=== PATIENT | male | born 1970 | race Caucasian/White ===

== ENCOUNTER 2019-02-10 08:01 | Emergency (ER) | payer MEDICAID, OTHER ==
[~2019-02-10] VITALS: Ht 167.6 cm; Wt 80.3 kg
[~2019-02-10 08:01] MED LIST: CARB15DR50 BOTH EARS; CHLO25CA9 PO; FAMO-96 PO; IBUP800T48 PO; MAG355OR15 PO; METF500T PO; METF500T24 PO; NAPR-985 PO; PENI500T PO
[2019-02-10 08:02] VITALS: Ht 167.6 cm; Wt 80.3 kg
[2019-02-10] MEDS ORDERED: ONDANSETRON 4 MG INJ IV STA (08:25)
[2019-02-10] MEDS ORDERED: SOD CHLORIDE 0.9% 1,000 ML IV STA (08:25)
[2019-02-10] MEDS ORDERED: MAGNESIUM SULFATE 2 GM, MULTIVITAMINS 10 ML, THIAMINE 100 MG, FOLIC ACID 1 MG in SOD CH... IV STA (08:25)
[2019-02-10] MEDS ORDERED: MECLIZINE 12.5 MG TAB PO ONE (08:30)
[2019-02-10] MEDS ORDERED: INSU100I33 SC (10:36)
[2019-02-10] MEDS ORDERED: MECL12.574 PO (10:50)
--- NOTE | 2019-02-10 10:50 | ERD ---
ER Documentation Chief Complaint Chief Complaint DIZZINESS SINCE THURSDAY; HISTORY OF DIABETES MELLITUS AND HYPERTENSION HPI This is a 48-year-old male that presents to the emergency department complaining of dizziness for the past 3 days. The patient indicates he has been drinking a significant amount of alcohol during that period. His last consumption of alcohol was roughly 12 hours ago. He has a history of diabetes mellitus and states he has not been compliant with his insulin since he had been drinking. He complains of a mild bandlike headache but states this is not the worst headache of his life. He denies any neck pain. He said no fevers or shaking or chills. He denies any head trauma. He has no chest pain. He has no shortness of breath. He has not experienced any hemoptysis hematemesis or melanotic stools. He states he is never had any history of withdrawal symptoms in the past from alcohol. ROS All systems reviewed and are negative except as per history of present illness. Medications Home Meds Reported Medications Insulin Glargine,Hum.rec.anlog (Basaglar Kwikpen U-100) 100 Unit/1 Ml Insuln.pen, 22 UNIT SC QAM, EA 02/10/19 Discontinued Scripts Metformin Hcl* (Metformin Hcl*) 500 Mg Tablet, 500 MG PO WITH BREAKFAST, #30 TAB Prov:OBIE KENNEY PA-C 02/26/16 Carbamide Peroxide* (Debrox*) 6.5% - 15 Ml Drops, 10 DROP BOTH EARS BID, #1 BOTTLE Prov:OBIE KENNEY PA-C 02/26/16 Ibuprofen* (Motrin*) 800 Mg Tab, 800 MG PO Q6, #30 TAB Prov:OBIE KENNEY PA-C 02/26/16 Penicillin V Potassium* (Penicillin V K*) 500 Mg Tab, 500 MG PO BID for 10 Days, TAB Prov:OBIE KENNEY PA-C 02/26/16 Chlordiazepoxide* (Chlordiazepoxide*) 25 Mg Capsule, 25 MG PO TID for 9 Days, CAP 50mg TID for 3 days 50mg BID for 3 days 50mg daily for 3 days Prov:ADEN WYLIE MD 11/21/15 Naproxen* (Naprosyn*) 500 Mg Tablet, 500 MG PO BID for PAIN, #30 TAB Prov:SPENCER GOLDSTEIN MD 04/24/15 Metformin Hcl (Glucophage) 500 Mg Tablet, 250 MG PO DAILY, #30 TAB Prov:SPENCER GOLDSTEIN MD 04/24/15 Famotidine* (Pepcid*) 20 Mg Tablet, 20 MG PO BID, #30 TAB Prov:SPENCER GOLDSTEIN MD 04/24/15 Mag Hydrox/Al Hydrox/Simeth (Maalox Max Strength Susp) 769 Ml Oral.susp, 2 TSP PO TID, #12 OZ Prov:SPENCER GOLDSTEIN MD 04/24/15 Allergies Allergies: Coded Allergies: No Known Allergies (Verified Allergy, Mild, 02/10/19) PMhx/Soc History of Surgery: No Anesthesia Reaction: No Hx Neurological Disorder: No Hx Respiratory Disorders: No Hx Cardiac Disorders: No Hx Psychiatric Problems: No Hx Miscellaneous Medical Probl: Yes (DM) Hx Alcohol Use: Yes (BEER DAILY) Hx Substance Use: No Hx Tobacco Use: No Smoking Status: Unknown if ever smoked Physical Exam Vitals Vital Signs Date Temp Pulse Resp B/P (MAP) Pulse Ox O2 O2 Flow FiO2 Time Delivery Rate 02/10/19 98.9 79 18 159/89 99 08:02 (112) Physical Exam Constitutional:Well-developed. Well-nourished. HEENT:Normocephalic. Atraumatic.Pupils were equal round reactive to light. Moist mucous membranes.No tonsillar exudates. Nasal septal hematoma. No hemotympanum. Neck: No nuchal rigidity. No lymphadenopathy. No posterior cervical spine tender ness or step-offs. Respiratory: Not using accessory muscles of respiration.Lungs were clear to auscultation bilaterally. No rhonchi. No rales. No wheezing. Cardiovascular: Regular rate regular rhythm.No murmurs. No rubs were appreciated.S1, S2 normal. Distal pulses are palpable 2+ bilaterally. GI: Abdomen was soft. Nontender. Non Distended. No pulsatile abdominal masses or bruits. No rebound. No guarding. Bowel sounds were present and normal. Muscle skeletal: Full range of motion of both the upper and lower extremities bilaterally.Normal muscle tone.No assymetrical calf tenderness or swelling. Skin: No petechia, no purpura. No lesions on the palms or the soles of the feet. No maculopapular rash. NEURO: Patient was alert, awake, orientated x3.No facial droop. Gait observed and normal with no ataxia.Speech had regular rate and rhythm. No focal neurological deficits. No nystagmus Result Diagram: 02/10/19 0824 02/10/19 0824 Results 24 hrs Laboratory Tests Test 02/10/19 08:19 02/10/19 08:24 Bedside Glucose 272 mg/dL White Blood Count 7.7 10^3/ul Red Blood Count 4.87 10^6/ul Hemoglobin 14.7 g/dl Hematocrit 42.2 % Mean Corpuscular Volume 86.7 fl Mean Corpuscular Hemoglobin 30.2 pg Mean Corpuscular Hemoglobin Concent 34.8 g/dl Red Cell Distribution Width 11.4 % Platelet Count 185 10^3/UL Mean Platelet Volume 11.6 fl Immature Granulocytes % 0.500 % Neutrophils % 45.9 % Lymphocytes % 42.3 % Monocytes % 7.3 % Eosinophils % 3.6 % Basophils % 0.4 % Nucleated Red Blood Cells % 0.0 /100WBC Immature Granulocytes # 0.040 10^3/ul Neutrophils # 3.5 10^3/ul Lymphocytes # 3.3 10^3/ul Monocytes # 0.6 10^3/ul Eosinophils # 0.3 10^3/ul Basophils # 0.0 10^3/ul Nucleated Red Blood Cells # 0.0 10^3/ul Prothrombin Time 14.3 Sec Prothrombin Time Ratio 1.1 INR International Normalized Ratio 1.10 Activated Partial Thromboplast Time 31.3 Sec Sodium Level 135 mmol/L Potassium Level 4.0 mmol/L Chloride Level 103 mmol/L Carbon Dioxide Level 23 mmol/L Anion Gap 9 Blood Urea Nitrogen 14 mg/dl Creatinine 0.68 mg/dl Est Glomerular Filtrat Rate mL/min > 60 mL/min Glucose Level 269 mg/dl Calcium Level 8.6 mg/dl Total Bilirubin 1.1 mg/dl Direct Bilirubin 0.00 mg/dl Indirect Bilirubin 1.1 mg/dl Aspartate Amino Transf (AST/SGOT) 43 IU/L Alanine Aminotransferase (ALT/SGPT) 63 IU/L Alkaline Phosphatase 122 IU/L Creatine Kinase 91 IU/L Creatine Kinase Index 1.6 Creatinine Kinase MB (Mass) 1.42 ng/ml Troponin I < 0.012 ng/ml B-Type Natriuretic Peptide 132 PG/ML Total Protein 7.8 g/dl Albumin 4.2 g/dl Globulin 3.60 g/dl Albumin/Globulin Ratio 1.16 Ethyl Alcohol Level < 10.0 mg/dl Current Medications Medications Dose Sig/Todd Start Time Status Last (Trade) Ordered Route PRN Stop Time Admin Dose Reason Admin Sodium 1,000 ml @ Q1H STAT 02/10/19 DC 02/10/19 Chloride 1,000 mls/hr IV 08:25 08:25 02/10/19 09:24 Magnesium 1,015.2 ml Q2H2M STAT 02/10/19 DC 02/10/19 Sulfate 2 @ 500 mls/ IV 08:25 09:45 gm/ hr 02/10/19 10:26 Multivitamins 10 ml/Thiamine HCl 100 mg/Folic Acid 1 mg/Sodium Chloride Ondansetron 4 mg ONCE STAT 02/10/19 DC 02/10/19 HCl (Zofran IV 08:25 09:15 Inj) 02/10/19 08:27 Meclizine 25 mg ONCE ONCE 02/10/19 DC 02/10/19 HCl PO 08:30 09:15 (Antivert) 02/10/19 08:31 Procedures/MDM This patient was seen and evaluated by myself. The patient presented to the emergency department complaining of dizziness. My differential diagnosis included but was not limited to hypovolemia, myocardial infarction, pulmonary embolism, hypoglycemia, hypoxia, anemia, vasovagal episode, hypothyroidism, anxiety, peripheral or central vertigo. The patient was placed on a residential monitor, continuous pulse oximetry and IV access established by nursing staff. The patient was given IV fluids. Patient was given Zofran and Antivert. I obtained a 12-lead EKG tracing to rule for atypical myocardial ischemia. 12 Lead EKG tracing ordered and reviewed by myself showed: Normal sinus rhythm of 63 bpm and no arrhythmia. [place] interval normal. QRS duration normal. No ST segment elevation No ST segment depression. No changes consistent with acute ischemia. The patient no severe left leg abnormalities. I did obtain a CT scan of the patient's head which showed no intracerebral hemorrhage mass-effect or midline shift. I did feel the patient's cephalgia was likely secondary to toxic metabolic headache given that the patient had been binge drinking alcohol. His serum ethanol was undetected. He was given a banana bag with folic acid thiamine and a multivitamin. He was also given Ativan as he was now experiencing asterixis. Observation Note: Time: 4 hours Family Hx: No Hypertension Evaluation: Multiple exams showed improving symptoms and no evidence of impending delirium tremors. Departure Diagnosis: Primary Impression: Dizziness Additional Impressions: Hyperglycemia without ketosis Alcohol withdrawal Complication of substance-induced condition: uncomplicated Qualified Codes: F10.230 - Alcohol dependence with withdrawal, uncomplicated Condition: Fair REHAN ORDOÑEZ MD February 10, 2019 10:50
[2019-02-10] MEDS ORDERED: LORAZEPAM 2 MG INJ IV ONE (11:00)
[2019-02-10 13:45] VITALS: BP 143/96; PULSE 59; RESP 18
== END 2019-02-10 13:45 | disposition home or self-care (01) ==
LOC: E/R 08:01
DX: E11.65 Type 2 diabetes mellitus with hyperglycemia (principal); I10 Essential (primary) hypertension; F10.230 Alcohol dependence with withdrawal, uncomplicated; Z79.4 Long term (current) use of insulin
CPT/HCPCS: 70450; 80053; 80307; 82550; 82553; 82962; 83880; 84484; 85025; 85610; 85730; 93005; 96374; 96375; 99285; J2060; J2405; J3411; J3475; J7030